=== PATIENT | female | born 1985 | race Caucasian/White ===

== ENCOUNTER 2016-09-21 15:54 | Observation (INO) | payer MEDICAID, OTHER ==
--- NOTE | 2016-09-21 16:11 | EDPHY ---
H & P HPI/ROS: CHIEF COMPLAINT: RLQ abdominal pain HISTORY OF PRESENT ILLNESS: The patient is a 31 y/o female arriving via EMS complaining of acute onset RLQ pain around 14:30, 1.5 hours ago. She describes her pain as "crampy" and initially 9/10 in severity, but currently 3/10 in severity after 100mg IV Fentanyl prehospitally. While initially localized to her RLQ, she now complains of diffuse abdominal pain. She has associated nausea and non-bloody vomiting that has not significantly improved after EMS administered 8mg IV Zofran en route. She notes she generally has painful menstruation, but states her pain today is much worse than she's ever experienced before. Her LMP was 2 weeks ago. She does not use control, but reports her partner has a vasectomy. Remote history of . No abdominal surgeries. REVIEW OF SYSTEMS: A 10 point review of systems was performed and is negative with the exception of the elements mentioned in the history of present illness. - Medical/Surgical History PMH: Remote history of . - Social History Additional Social History: Nonsmoker. Partner at bedside. No alcohol use. [place] in [place] - Physical Exam Exam: General Appearance: Alert, uncomfortable appearing. Eyes: Pupils equal and round, no conjunctival injection, no discharge. ENT, Mouth: Mucous membranes are moist, no oropharyngeal erythema or edema. Neck: No lymphadenopathy, supple. Respiratory: Lungs are clear to auscultation; no wheezes, rales, or rhonchi. Cardiovascular: Regular rate and rhythm; no murmur, rub, or gallop. Gastrointestinal: Abdomen is soft and diffusely tender, worse in RLQ, no masses or organomegaly, bowel sounds normal. Pelvic: no cervical motion tenderness on bimanual exam, uterus small and nontender, RLQ and LLQ tenderness, unable to assess size of ovaries. Skin: Warm and dry, no rashes, normal color. Back: Nontender to palpation over the thoracolumbar spine. Extremities: No lower extremity edema, no calf tenderness or swelling. Neurological: Alert and oriented. Moving all four extremities easily and equally. Psychiatric: Normal affect. Constitutional: Initial Vital Signs Temperature (C) 36.7 C 09/21/16 16:01 Heart Rate 80 09/21/16 16:01 Respiratory Rate 18 05/19/17 16:01 Blood Pressure 127/75 H 09/21/16 16:01 O2 Sat (%) 98 09/21/16 16:01 O2 Delivery Mode Room Air Allergies/Adverse Reactions: No Known Allergies Allergy (Unverified 07/12/14 01:12) Home Medications: Medication Instructions Recorded Hydrocodone/APAP 5/325 [[place] 1 - 2 tab PO Q4H PRN #20 tab 07/12/14 5/325 (*)] Hydrocodone/APAP 5/325 [[place] 1 - 2 tab PO Q4HRS PRN #5 tab 09/22/16 5/325 (*)] Ibuprofen [Motrin (*)] 600 mg PO Q6HRS PRN #30 tab 09/22/16 Medical Decision Making - Diagnostics Imaging: Discussed imaging studies w/ web portal developer Radiologist, I viewed and interpreted images myself ED Course/Re-evaluation: IV established. Labs drawn including CBC, CHEM. Urine dip and ordered. 0.5mg IV Dilaudid administered for pain. Pelvic ultrasound ordered. 1739: Reassessed patient. She continues to have significant abdominal pain, most severe in both lower quadrants and worse on the left. Urine dip was unremarkable. Urine test negative. Her US did not show evidence of a torsion, but did show a complex ovarian cyst/endometrioma. This might explain her significant and persisting pain. Plan for abdominal CT. 100mcg IV Fentanyl administered. Several CT findings per radiologist including large, full stomach and signs of mild gastroenterocolitis, but nothing that shows obvious cause for her acute pain. I discussed work up thus far with her. Her pain has not improved much with medication, but is alleviated slightly with positioning. She continues to have nausea. She denies changes in vaginal discharge. She does note she has intermittent blood in her stool, and had some in her stool yesterday. She has attributed this to eating certain foods in the past. Her WBC count is slightly elevated, no fever--I do not think that this is PID, but that remains in the differential. 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 2034: Consulted with Dr. Mota, surgeon. He will assess patient in the ED. He request a sed rate. 2102: Consulted with Dr. Mckay, OBGYN. She requests pelvic exam findings. 2121: Bimanual pelvic exam reveals: no cervical motion tenderness per my exam, LLQ and RLQ tenderness. Difficult for me to assess ovarian size due to pain. 2126: Consulted with Dr. Mckay. She will assess patient in the ED. Dr. Mckay plans to take patient to the operating room. Differential Diagnosis: I considered a ddx of appendicitis, ovarian torsion, ovarian cyst, ectopic , endometriosis, PID, SBO, UTI, pyelonephritis. - Data Points Laboratory Results: Laboratory Results 09/21/16 16:05 09/21/16 16:05 Medications Given: Discontinued Medications Hydrocodone Bitart/Acetaminophen ([place] 5/325) 1 - 2 tab PO Q4HRS PRN PRN Reason: Pain, Moderate Stop: 10/02/16 00:56 Last Admin: 09/22/16 19:22 Dose: 0.5 tab Fentanyl (Sublimaze) 100 mcg IVP EDNOW ONE Stop: 09/21/16 17:31 Last Admin: 09/21/16 17:30 Dose: 100 mcg Hydromorphone HCl (Dilaudid) 0.5 mg IVP EDNOW ONE Stop: 09/21/16 16:24 Last Admin: 09/21/16 16:30 Dose: 0.5 mg Sodium Chloride (Ns) 1,000 mls @ 3,000 mls/hr IV ONCE ONE Stop: 09/21/16 19:57 Last Admin: 09/21/16 19:39 Dose: 1,000 mls Ertapenem 1 gm/ Sodium (Chloride) 100 mls @ 200 mls/hr IV ONCE ONE Stop: 09/21/16 22:59 Last Admin: 09/22/16 01:34 Dose: Not Given Lactated Ringer's (Lr) 1,000 mls @ 125 mls/hr IV CONT COLBY Stop: 03/21/17 00:59 Last Admin: 09/22/16 01:45 Dose: 1,000 mls Ibuprofen (Motrin) 600 mg PO Q6HRS PRN PRN Reason: Pain, Inflammatory Stop: 03/21/17 12:53 Last Admin: 09/22/16 20:56 Dose: 600 mg Ketorolac Tromethamine (Toradol) 30 mg IVP Q6HRS PRN PRN Reason: Pain, Inflammatory Stop: 09/27/16 01:09 Last Admin: 09/22/16 13:51 Dose: 30 mg Ondansetron HCl (Zofran) 4 mg IVP EDNOW ONE Stop: 09/21/16 17:31 Last Admin: 09/21/16 17:30 Dose: 4 mg Departure - Departure Disposition: [facility] Inpatient Acute Clinical Impression: Abdominal pain Qualifiers: Abdominal location: left lower quadrant Qualified Code(s): R10.32 - Left lower quadrant pain Condition: Good Report Scribed for: Sujata Julien Report Scribed by: Regina Worley Date of Report: 09/21/16 Time of Report: 16:29 Physician Review and Approval Statement: 09/26/16 07:59 Portions of this chart were entered by a medical records receptionist. I have reviewed the chart and agree with the documentation. I personally performed the HPI, PE, MDM.
[2016-09-21] MEDS ORDERED: HYDROmorphONE/DILAUDID 1 MG/ML SYR IVP ONE (16:23)
[2016-09-21] MEDS ORDERED: HYDROmorphONE/DILAUDID 1 MG/ML SYR ONE (16:28)
[2016-09-21 16:40] LABS: % IMMATURE GRANULYOCYTES 0.3 % (0.0-1.1); ABSOLUTE IMMATURE GRANULOCYTES 0.04 10^3/uL (0.00-0.10); ADD DIFF? NO; ADD MORPH? NO; ADD SCAN? YES; ATYPICAL LYMPHOCYTE FLAG 0 (0-99); FRAGMENT RBC FLAG 0 (0-99); HEMATOCRIT 43.9 % (38.0-47.0); HEMOGLOBIN 15.3 g/dL (12.6-16.3); LEFT SHIFT FLG 30 (0-99); LIPEMIA HEMOLYSIS FLAG 90 (0-99); MEAN CELL HEMOGLOBIN 30.3 pg (27.9-34.1); MEAN CELL HEMOGLOBIN CONCENTR. 34.9 g/dL (32.4-36.7); MEAN CELL VOLUME 86.9 fL (81.5-99.8); MEAN PLATELET VOLUME 11.4 fL (8.7-11.7); PLATELET CLUMPS FLAG 300 (0-99); PLATELET COUNT 153 10^3/uL (150-400); RED BLOOD CELL COUNT 5.05 10^6/uL (4.18-5.33); RED CELL DISTRIBUTION WIDTH 12.8 % (11.5-15.2)
[2016-09-21 16:44] LABS: ANION GAP 11 mEq/L (8-16); CALCIUM 9.1 mg/dL (8.5-10.4); CARBON DIOXIDE 21 mEq/l (22-31); CHLORIDE 108 mEq/L (97-110); CREATININE 0.7 mg/dL (0.6-1.0); GLOMERULAR FILTRATION RATE > 60; GLUCOSE 88 mg/dL (70-100); POTASSIUM 3.9 mEq/L (3.5-5.2); SODIUM 140 mEq/L (134-144)
[2016-09-21 17:12] LABS: SCAN NEGATIVE
[2016-09-21] MEDS ORDERED: fentaNYL 100 MCG/2 ML INJ IVP ONE (17:30)
[2016-09-21] MEDS ORDERED: ONDANSETRON 4 MG/2 ML VIAL IVP ONE (17:30)
[2016-09-21] MEDS ORDERED: fentaNYL 100 MCG/2 ML INJ ONE ×4 (17:36→23:18)
[2016-09-21] MEDS ORDERED: ONDANSETRON 4 MG/2 ML VIAL ONE ×2 (17:36→23:16)
[2016-09-21] MEDS ORDERED: IOPAMIDOL (ISOVUE-300) 100 ML BTL ONE (18:05)
[2016-09-21] MEDS ORDERED: NS 1,000 ML IV ONE (19:38)
[2016-09-21 19:57] LABS: MUCUS TRACE /lpf (NONE-1+)
[2016-09-21 20:12] LABS: COLOR YELLOW; LEUKOCYTE ESTERASE,URINE NEGATIVE (NEGATIVE); NITRITE,URINE NEGATIVE (NEGATIVE)
[2016-09-21 20:23] LABS: COLOR YELLOW; LEUKOCYTE ESTERASE,URINE NEGATIVE (NEGATIVE); NITRITE,URINE NEGATIVE (NEGATIVE)
[2016-09-21 20:54] LABS: SEDIMENTATION RATE 4 MM/HR (0-20)
[2016-09-21] MEDS ORDERED: BUPIVACAINE 0.5% 30 ML SDV ONE (22:22)
--- NOTE | 2016-09-21 22:24 | GHP ---
[f rep st] PREOP HISTORY AND PHYSICAL DATE OF ADMISSION: 09/21/2016 HISTORY OF PRESENT ILLNESS: 31-year-old female who had sudden onset of sharp abdominal pain approxi mately 7 hours prior to this dictation. She was feeling totally fine and had sudden, sharp pain and almost collapsed. Pain is located in her pelvis on both sides. She is mid-cycle, as far as she re members. Does not use control. She has had no previous abdominal surgeries and no pain simil ar to this. She does have painful menses. She is not . She has no history of pelvic infla mmatory disease or endometriosis. PAST MEDICAL HISTORY: Includes an . No other major surgeries, hospitalizations, or serious illnesses. ALLERGIES: None. MEDICATIONS: None. REVIEW OF SYSTEMS: Reveals she does not smoke, and a full 10-point review of systems reveals no kamran or abnormalities, including no cardiopulmonary symptoms, diabetes, epilepsy, peptic ulcer disease, a sthma, or inflammatory bowel problems. PHYSICAL EXAMINATION: GENERAL: Reveals an alert, uncomfortable 31-year-old female in no acute dist ress. HEAD and NECK: Reveals no icterus. No oral lesions. NECK: Supple. No thyromegaly. CHEST : Clear. CARDIAC: Regular rhythm. ABDOMEN: Soft, slightly distended. Decreased bowel sounds. She is quite tender in both lower quadrants with some rebound and guarding. PELVIC: Exam done by Lakeisha Julien revealed no cervical motion tenderness. EXTREMITIES: Benign with full pulses. IMAGING STUDIES: Revealed fluid in the pelvis and bilateral ovarian cystic structures consistent wi th endometriosis. LABORATORY DATA: Her white blood count is 13,000, her hematocrit is 44. Her urine is clear. Her s ed rate was reported to me as 4. IMPRESSION: Probable complex ovarian cyst with rupture. She is quite tender, however, and I think that she probably warrants laparoscopy to find the problem as well as the possibility of ruptured ap pendix in her pelvis, but appendix cannot be seen on CT scan, and her pain is just as great on the l eft as on the right. RECOMMENDATIONS: Would be SHERIFF DETECTIVE consult, consideration for laparoscopy. Risks and options fully disc ussed with the patient and her partner. /[id number]/MODL
[2016-09-21] MEDS ORDERED: ERTAPENEM 1 GM in NS 100 ML IV ONE (22:30)
[2016-09-21] MEDS ORDERED: MIDAZOLAM 2 MG/2 ML VIAL ONE (22:38)
[2016-09-21] MEDS ORDERED: PROPOFOL 200 MG/20 ML VIAL ONE (22:43)
--- NOTE | 2016-09-21 22:59 | GHP ---
[f rep st] PREOP HISTORY AND PHYSICAL DATE OF ADMISSION: 09/21/2016 HISTORY: The patient is a 31-year-old, 1, para 0-0-1-0, who presented to the emergency room with persistent abdominal pain. The patient states that she was doing fine this morning and then had sudden onset of severe pain on her left lower quadrant and has had a persistent abdominal pain since that time. She presented to the emergency room and has received pain medicine but was having persistent abdominal pain, is having to rock back and forth, which is the only thing that helps the pain; She states standing up, and moving other than the rocking substantially increases the pain. The patient has had persistent severe pelvic and abdominal pain since arriving to the emergency room despite receiving pain medicine. A pelvic ultrasound was obtained which showed a uterus measuring 9 x 6 x 5 cm with an endometrial thickness of 9 mm. No fibroids were noted. The right ovary measured 5.5 x 4 x 3.2 cm. The left ovary measured 2 x 2 x 2 cm with a left ovarian complex cyst with internal echoes measuring 4.9 x 3.8 x 3.4 cm, consistent with an endometrioma. No free fluid was noted within the pelvis. Color-flow Doppler was noted to be present to both ovaries. The patient continued to have persistent pain despite additional pain medications, so an abdominal CT was obtained, which showed borderline splenomegaly, features suggestive of mild gastroenterocolitis, a small volume of ascites, and ovarian cyst. The patient was evaluated by general surgeon, Jerrod Mota, who wishes to proceed with a diagnostic laparoscopy. We have agreed that I will perform the surgery with him to evaluate for endometriosis and endometrioma and removal of the adnexal mass. The patient has been properly consented. MEDICAL HISTORY: Unremarkable. MEDICATIONS: None. SURGICAL HISTORY: Voluntary termination of . ALLERGIES: No known drug allergies. SOCIAL HISTORY: The patient denies tobacco, alcohol, or drug use. FAMILY MEDICAL HISTORY: Significant for multiple family members with drug and alcohol abuse, hypertension, heart disease, and cancer. OBSTETRIC AND GYNECOLOGIC HISTORY: Menarche age 14. Periods every monthly lasting 3 days. The patient has history of regular cycles, but over the last year, they have been getting progressively more painful. She has significant nausea, abdominal pain, vomiting and sweats with her periods. She only bleeds for 3 days, but the first day is intense cramping. The patient does have a remote history of abnormal Pap smears, and she has a history of HPV but has not had any other sexually transmitted diseases. The patient states she has occasional dyspareunia and does not plan on having any children, and her partner has had a vasectomy. The patient had a Mirena IUD in the past, during which time she did not have any periods. She has never been on control pills. She has not had a Pap smear or annual exam recently due to anxiety over interactions with doctors. REVIEW OF SYSTEMS: Ten-point review of systems positive for nausea, vomiting, abdominal pain, and abdominal cramping. PHYSICAL EXAMINATION: VITAL SIGNS: Stable. Her blood pressure is 127/75, repeat was 109/68. Heart rate was 95. She is satting 98% on room air. Her temperature is 36.8. GENERAL APPEARANCE: The patient is alert and oriented, and appears to be in moderate discomfort. PSYCHIATRIC: She has normal appropriate affect and fear over having surgery. NECK: Freely mobile and supple. The thyroid is midline. HEART: Rate is regular/regular. LUNGS: Clear to auscultation bilaterally. ABDOMEN: Soft. There is no guarding or rebound, but she does have abdominal tenderness across the upper abdomen and in the lower pelvis. EXTREMITIES: No calf tenderness or edema. PELVIC: There is cervical motion tenderness and left adnexal tenderness. Pelvic ultrasound is as described above. LABORATORY VALUES: White blood count is 13.6, hemoglobin is 15.3, hematocrit is 43.9, her platelets are 153. Urine is negative with exception of 1+ ketones and elevated specific gravity. urine test is negative. ASSESSMENT/PLAN: A 31-year-old, 1, para 0-0-1-0, with sudden onset of abdominal pain today and cervical motion tenderness and an adnexal mass. We will proceed, Dr. Mota and myself, with a diagnostic laparoscopy, removal of endometrioma, if in place, and assessment of the appendix. Risks and benefits have been extensively reviewed with the patient, and the patient has been properly consented. /[id number]/MODL MTDD
[2016-09-21] MEDS ORDERED: DEXAMETHASONE 4 MG/ML VIAL ONE (23:15)
[2016-09-21] MEDS ORDERED: SUCCINYLCHOLINE CHLORIDE*ANESTHESIA ONLY*200 MG/10 ML SYR IVP ONE (23:18)
[2016-09-21] MEDS ORDERED: ROCURONIUM 50 MG/5 ML VIAL ONE (23:18)
[2016-09-21] MEDS ORDERED: PHENYLEPHRINE HCL 100 MCG/ML SYR ONE (23:18)
[2016-09-21] MEDS ORDERED: LIDOCAINE 2% 5 ML SDV ONE (23:18)
[2016-09-21] MEDS ORDERED: SUGAMMADEX SODIUM 200 MG/2 ML VIAL IVP ONE (23:58)
[2016-09-22] MEDS ORDERED: fentaNYL 100 MCG/2 ML INJ ONE (00:19)
[2016-09-22] MEDS ORDERED: PROMETHAZINE HCL 25 MG/ML INJ ONE (00:27)
--- NOTE | 2016-09-22 00:53 | POSTOPPROG ---
Post Op Note Date of Operation: 09/22/16 Surgeon: Cary Mckay Master Cook: louis otero Anesthesiologist: alejandra Anesthesia: GET(General Endotracheal) Pre-op Diagnosis: abdominal and pelvic pain Post-op Diagnosis: hemoperiteum, stage 4 endometriosis Procedure: laparscopic bilateral ovarian cystetomy, lysis of adhesions Inf/Abcess present in the surg proc area at time of surgery?: No EBL: 50-100 Specimen(s): cystic fluid
[2016-09-22] MEDS ORDERED: HYDROmorphONE/DILAUDID 1 MG/ML SYR IVP PRN (00:57)
[2016-09-22] MEDS ORDERED: ONDANSETRON 4 MG/2 ML VIAL IVP PRN (00:57)
[2016-09-22] MEDS ORDERED: LR 1,000 ML IV SCH (01:00)
[2016-09-22] MEDS ORDERED: PROMETHAZINE HCL 12.5 MG SUPPR PR PRN (01:11)
[2016-09-22] MEDS: KETOROLAC 30 MG/1 ML SDV IVP PRN ×2 (08:10→13:51)
--- NOTE | 2016-09-22 12:53 | SOAPPROG ---
SOAP Progress Note Assessment/Plan: Assessment: pod# 1 s/p laparoscopy bilateral ovarian cystectomy, lysis of adhesions urinary retention Plan: discharge instructions bladder scans, voiding/ self catheterization instructions 09/22/16 12:48 Subjective: patient is doing great. pain is well controlled. passing gas. tolerating diet. ambulating. scant vaginal bleeding. not experiencing any should pain. has had issues voiding. stated that was having that before surgery yesterday. is able to void with time and gentle suprapubic pressure. ready to go home. long discussion about surgical findings and next steps. patient has [employer] insurance. will give referral to dr jerardo mcgowan who is a provider there. Objective: Vital Signs Temp Pulse Resp BP Pulse Ox 36.1 C 80 16 92/64 L 93 09/22/16 08:48 09/22/16 08:48 09/22/16 08:48 09/22/16 08:48 09/22/16 08:48 09/21/16 09/22/16 09/23/16 05:59 05:59 05:59 Intake Total 2200 Output Total 500 Balance 1700 Physical Exam - Physical Exam General Appearance: WD/WN, alert, no apparent distress Respiratory: chest non-tender, lungs clear, normal breath sounds Cardiac/Chest: normal peripheral pulses, regular rate, rhythm Abdomen: normal bowel sounds, non-tender, soft Skin: normal color, warm/dry, other (incicions covered) Extremities: normal range of motion, non-tender, normal inspection, normal capillary refill Neuro/Psych: no motor/sensory deficits, alert, normal mood/affect, oriented x 3 ICD10 Worksheet Patient Problems: Problems Problem Status Onset Abdominal pain Acute
[2016-09-22] MEDS ORDERED: IBUPROFEN 600 MG TAB PO PRN (12:54)
--- NOTE | 2016-09-22 14:20 | GOP ---
[f rep st] OPERATIVE REPORT DATE OF OPERATION: 09/22/2016 SURGEON: Cary Mckay DO SHUT OFF WORKER: Jeb Mota MD ANESTHESIA: General endotracheal tube. ANESTHESIOLOGIST: Braxton Andrade MD PREOPERATIVE DIAGNOSIS: pelvic pain. POSTOPERATIVE DIAGNOSIS: Hemoperitoneum with stage IV endometriosis. PROCEDURE PERFORMED: Laparoscopy with bilateral ovarian cystectomy and lysis of adhesions. FINDINGS: 1. Exam under anesthesia: Mobile uterus with bilateral adnexal masses. 1. Laparoscopic findings: Normal-appearing appendix. Normal appearing upper abdomen and liver. A small amount of blood in the abdomen. Normal-appearing left fallopian tube. Left ovary is enlarge d with an enlarged endometrioma adherent to the left sidewall. Right ovary had a simple cyst and en larged chocolate cyst, which is adherent to the right sidewall. The right fallopian tube was wrappe d around the right ovary. Obliteration of the posterior cul-de-sac with adhesions and endometriosis . 2. SPECIMENS: Chocolate cyst fluid and simple cyst fluid. ESTIMATED BLOOD LOSS: 20 cc. INDICATIONS: Patient is a 31-year-old, 1, para 0-0-1-0, who presented to the emergency room after sudden onset of abdominal pain. The patient states she has had progressively worsening and s evere periods. She has not seen a doctor in the last several years because of the anxiety around ph ysicians; however, she had sudden onset of severe pain so presented to the emergency room. Pelvic u ltrasound was obtained which showed a suspected endometrioma and minimal free fluid. A CAT scan louisa wed bilateral complex ovarian cysts. Management options were reviewed with the patient. Patient wa s in significant pain despite pain medicine and has cervical motion tenderness. Decision was made t o proceed with a laparoscopy and additional procedures as indicated. Risks and benefits of the proc edure were reviewed extensively with the patient, and patient has been properly consented. DESCRIPTION OF PROCEDURE: Patient was taken to the operating room with intravenous fluids in place. She was then placed on the operating room table in the dorsal supine position where general anesth esia was obtained with ease. She was then repositioned into the dorsal lithotomy position with the Yellofin stirrups and prepped and draped in the normal sterile fashion. Chlamydia and gonorrhea cul tures were obtained just before patient was prepped. Exam under anesthesia revealed a mobile mid-po sition uterus, but there were bilateral adnexal masses were noted. A speculum was then placed in th e patient's vagina. An Allis clamp was used to grasp the anterior lip of the cervix, and then an Ac orn uterine manipulator was then inserted. Attention was then turned to the patient's abdomen, where a 5 mm skin incision was then made in the umbilicus. A Veress needle was then inserted, and the abdomen was then insufflated with CO2 gas unt il an adequate pneumoperitoneum was achieved. A 5 mm trocar was then advanced into the patient's ab domen under direct visualization with the Optiview. The area underneath the trocar insertion site w as unremarkable. The upper abdomen was explored. The liver and gallbladder are unremarkable. The appendix was unremarkable. Two additional ports were placed in the patient's right and left lower q uadrants. They were 5 mm skin incisions placed under direct visualization. Diffuse endometriosis w as noted. There was a large left endometrioma, and bilateral endometriomas were noted, and adhesion s behind the posterior cul-de-sac were noted. A needle was then inserted into the left ovary and ch ocolate cystic fluid was drained off and sent off to Pathology. Heated scissors were then used to e xtend that excision, and the suction brand advisor was then used to clean out the ovarian cyst. We atte mpted to remove the cyst wall; however bleeding was encountered, and because patient will need long- term management, decision was made to not increase the risk of needing to remove the ovary, because we had not had extensive discussions about potential management options for long-term endometriosis prior to the surgery. The left ovary was noted to be adherent to the left sidewall. It was freed u p and mobile following the procedure. Attention was then turned to the right side. There was a simple-appearing cyst anteriorly. A needl e was injected into that, and clear fluid was drained. The cystotomy was then extended, and it was irrigated out. There was a 2nd cyst noted posterior and inferior to that, into which a needle was i njected, and chocolate cystic fluid came out. Heated scissors were then used to extend the cystotom y, and this was irrigated out. Again cyst wall was attempted to be removed but bleeding continued; so cauterization was performed, and that cyst wall was left intact. The posterior cul-de-sac was ex plored. We tried to dissect the ovary off the sidewall as much as possible, and the mobilization wa s increased but it was still somewhat adherent. Adhesions in the posterior cul-de-sac were lysed as much as possible and irrigated. The cystotomy sites were evaluated and found to be hemostatic. Al l operative sites were found to be hemostatic. The pelvis was copiously irrigated and the lower tro cars were removed from the patient's abdomen. The camera was removed from the patient's abdomen, an d CO2 gas was expressed. The skin incisions were then closed with 4-0 Monocryl in a subcuticular fa shion. Steri-Strips were applied. Instruments were then removed from patient's vagina. Patient kiko renteria returned to the dorsal supine position where she was easily awakened from anesthesia. Sponge coun t was correct. Patient was transported to recovery room in stable condition. /[id number]/MODL
[2016-09-22] MEDS: HYDROCODONE/APAP 5/325 TAB PO PRN ×2 (17:08→19:22)
[2016-09-23 08:32] VITALS: BP 90/60; PULSE 57; RESP 16; TEMP 97.4; O2SAT 97
--- NOTE | 2016-09-23 09:57 | SOAPPROG ---
SOAP Progress Note Assessment/Plan: Assessment: pod# 2 s/p laparoscopy bilateral ovarian cystectomy, lysis of adhesions urinary retention - has resolved Plan: discharge instructions voiding instructions 09/23/16 09:55 Subjective: patient is doing much better. was going to go home last night but was not able to pee without providing significant suprapubic pressure and taking a significant amount of time. is able to void without difficulty now. is not having any pain. tolerating diet. passing gas. ready to go home. Objective: Vital Signs Temp Pulse Resp BP Pulse Ox 36.3 C 57 L 16 90/60 L 97 09/23/16 08:31 09/23/16 08:31 09/23/16 08:31 09/23/16 08:31 09/23/16 08:31 09/22/16 09/23/16 09/24/16 05:59 05:59 05:59 Intake Total 2200 1200 Output Total 500 900 Balance 1700 300 Physical Exam - Physical Exam General Appearance: WD/WN, alert, no apparent distress Neck: non-tender, full range of motion Respiratory: chest non-tender, lungs clear, normal breath sounds Cardiac/Chest: normal peripheral pulses, regular rate, rhythm Abdomen: normal bowel sounds, non-tender, soft Skin: normal color, warm/dry, other (incisions clean dry and intact) Extremities: normal range of motion, non-tender, normal inspection, normal capillary refill Neuro/Psych: no motor/sensory deficits, alert, normal mood/affect, oriented x 3 ICD10 Worksheet Patient Problems: Problems Problem Status Onset Abdominal pain Acute
== END 2016-09-23 10:40 | disposition home or self-care (01) ==
LOC: EDUNIT# → FOB 09-22 01:00
PROVIDERS: ADMIT Obstetrics & Gynecology; ATTEND Obstetrics & Gynecology
DX: N80.1 Endometriosis of ovary (principal); K66.1 Hemoperitoneum; R33.9 Retention of urine, unspecified
CPT/HCPCS: 58661; 74177; 76856; G0378; J0330; J1100; J1170; J1335; J1885; J2250; J2370; J2405; J2550; J2704; J3010; Q9967